=== PATIENT | female | born 1995 | race Caucasian/White ===

== ENCOUNTER → 2023-10-16 10:48 | Outpatient (CLI) | payer OTHER, SELFPAY ==
--- NOTE | ~2023-10-16 | US_ITS ---
EXAMINATION: US OB <=14 wk fetus w TV DATE: 10/16/2023 11:36 INDICATION: First term with inconclusive viability. TECHNIQUE: Real-time pelvic ultrasound utilizing both a transvaginal and transabdominal probe was pe rformed. The interpreting radiologist was not present for the study. COMPARISON: None. FINDINGS: The uterus measures 10.3 x 5.5 x 6.7 cm. There is an intrauterine gestational sac. A yolk sac and fe sonido pole are identified. The crown rump length measures 8 mm, which correlates with an estimated gest ational age of 6 weeks and 5 days. heart motion is identified measuring 126 beats per minute (b pm) by M-mode Doppler. The right ovary measures 2.2 x 2.0 x 1.5 cm. The left ovary measures 2.7 x 1.7 x 2.3 cm. 1.6 cm anech oic likely corpus luteum cyst in the left ovary. There is no free fluid in the pelvis. IMPRESSION: 1. Single living fetus with heart of 126 bpm. 2. Gestational age by ultrasound of 6 weeks 5 day(s) +/- 4 day(s) with ultrasound estimated date of delivery ([facility]) of 06/05/2024. Reviewed, dictated and finalized at location A. IN STATION OPERATOR IMPRESSION: 1. Single living fetus with heart of 126 bpm. 2. Gestational age by ultrasound of 6 weeks 5 day(s) +/- 4 day(s) with ultraso und estimated date of delivery ([facility]) of 06/05/2024.
== END ==
PROVIDERS: PCP Nurse Practitioner Family; Visit Provider Nurse Practitioner Family
DX: O36.80X0 Pregnancy with inconclusive fetal viability, not applicable or unspecified (principal); Z3A.01 Less than 8 weeks gestation of pregnancy
CPT/HCPCS: 76801; 76817

== ENCOUNTER → 2023-10-30 10:15 | Outpatient (CLI) | payer OTHER, SELFPAY ==
--- NOTE | ~2023-10-30 | US_ITS ---
EXAMINATION: US OB <=14 wk fetus w TV DATE: 10/30/2023 10:45 INDICATION: with inconclusive viability. TECHNIQUE: Real-time transabdominal and transvaginal pelvic ultrasound was performed. COMPARISON: Ultrasound 10/16/2023 FINDINGS: TRANSABDOMINAL ULTRASOUND: The uterus measures 10.7 x 4.4 x 7.6 cm. TRANSVAGINAL ULTRASOUND: There is an intrauterine gestational sac. A yolk sac is identified. The fet al crown rump length measures 1.6 cm, which correlates with an estimated gestational age of 8 weeks a nd 0 day(s) (+/-) 5 day(s). heart motion is not identified by M-mode Doppler. There is a small subchorionic hematoma. The right ovary measures 2.0 x 1.4 x 2.2 cm. The left ovary measures 2.6 x 2.7 x 2.4 cm. There is no free fluid in the pelvis. IMPRESSION: 1. demise. Reviewed, dictated and finalized at location A. SPECIALIST IMPRESSION: 1. demise.
== END ==
PROVIDERS: PCP Nurse Practitioner Family; Visit Provider Nurse Practitioner Family
DX: O36.80X0 Pregnancy with inconclusive fetal viability, not applicable or unspecified (principal); Z3A.00 Weeks of gestation of pregnancy not specified
CPT/HCPCS: 76801; 76817

== ENCOUNTER 2023-10-30 12:57 | Outpatient (CLI) | payer OTHER, SELFPAY | END 2023-10-30 12:58 | disposition home or self-care (01) | PROVIDERS: PCP Nurse Practitioner Family; Visit Provider Nurse Practitioner Family | DX: O02.1 Missed abortion (principal); Z3A.00 Weeks of gestation of pregnancy not specified | CPT/HCPCS: 36415; 86900; 86901 ==

== ENCOUNTER 2023-11-13 01:31 | Day surgery (SDC) | payer OTHER, SELFPAY ==
[2023-11-06 09:47] VITALS: BMI 31.3
--- NOTE | 2023-11-06 09:50 | PC.NURSE ---
Report to the Outpatient Waiting Room, entrance under the green pavilion located off [facility], at time 0630 on date 11/13/23. Planned Procedure Time: 0830. Time changes happen often and if your time is changed the preop area will call you the afternoon before. - You and your visitor will be asked to self-screen and do not enter if you have any COVID symptoms. - A mask is optional within the hospital at this time. Patients may have clear liquids (water, carbonated beverages, clear teas, apple juice) until 3 hours prior to surgery with a maximum of 20 ounces. - No food from midnight until time of surgery Take the following medications with a SIP of water the morning of surgery: BUPROPION, ESCITALOPRAM DO NOT STOP ANY OF YOUR OTHER PRESCRIPTION MEDICATIONS PRIOR TO SURGERY ?EXCEPT THE FOLLOWING Medications to discontinue per physician: VITAMINS Date to take last dose: 11/09/23 Please no make-up, nail guamanian, hairspray, perfume, deodorant, or body powder the day of surgery. No jewelry (including any body piercings) or valuables the day of surgery, leave them at home. Please take a shower or bath the night before, or the morning of, surgery with an antibacterial soap. Wear comfortable, loose fitting clothing. - Jewelry must be removed prior to entering the operating room. Rings and piercings that are not removed may be cut off. - The hospital will not accept responsibility for valuables. - Please leave all valuables, including medications, at home the day of surgery. If you are going home after surgery, a licensed warehouse delivery driver must drive you home. - NO public transportation without another adult if you receive anesthesia. - We recommend that an adult stay with you for 24 hours following discharge. - We also recommend that you do not drive, make important decision, drink alcoholic beverages, or take any drugs that were not prescribed by your health care provider for at least 24 hours after your discharge time. Follow any additional instructions given to you from your surgeon. If you or anyone in your household have experienced Covid symptoms in the past week, please notify your surgeon or the nurse liaison at the phone number below for possible testing. Telephone instructions given to PT - IVET LA and asked if any additional questions and then verbalized understanding. Patient advised to call surgeon office or pre surgery nurse liaison [phone] if any additional questions.
--- NOTE | 2023-11-13 06:14 | PM.IMHP ---
H&P: HPI History of Present Illness Date/Time: 11/13/23 06:14 Chief Complaint: Missed Narrative: Patient with recent history of missed . She attempted completion with several doses of misoprostol and she did not have any passage of tissue. She has opted for dilation and curettage. Review of Systems Review of Systems: All systems reviewed & are unremarkable except as noted in HPI and below Cardiovascular: Cardiovascular: Reports no additional cardiovascular complaints, Denies chest pain and Denies dyspnea Respiratory: Respiratory: Reports no additional respiratory complaints and Denies dyspnea Gastrointestinal: Gastrointestinal: Reports abdominal pain, Denies change in bowel habits, Denies diarrhea, Denies nausea and Denies vomiting Genitourinary: Genitourinary: Reports pelvic pain Musculoskeletal: Musculoskeletal: Reports back pain Integumentary/Breasts: Skin/Breast: Reports system reviewed and no additional complaints, except as docu Neurologic: Reports system reviewed and no additional complaints, except as documented PMFSH Past Medical History Medical History Anxiety Surgical History Surgical History History of tonsillectomy Family History Family History Other Alcoholism Diabetes mellitus Hypertension Social History Social History Smoking status: Never smoker Alcohol intake: never Substance use: current Substance use type: marijuana Do You Feel Safe in your Home?: Yes Lack of Transportation: No Lack of Food: Never True Current Housing: I Have Housing Concerned About Future Housing: No Difficulty Paying Gas/Electric Bills: No Difficulty Paying for Meds: No Currently Unemployed: No Education: Master's Degree or Higher Difficulty w/ Childcare or Family Care: No Living arrangements: with family Spiritual care concerns: No Meds Home Medications and Allergies Home Medications Medication Instructions Recorded Confirmed Type escitalopram oxalate 20 mg tablet 20 mg PO DAILY #90 tabs 10/14/23 11/13/23 Rx (Lexapro) bupropion HCl 100 mg tablet 100 mg PO DAILY #90 tabs 10/30/23 11/13/23 Rx Allergies Allergy/AdvReac Type Severity Reaction Status Date / Time No Known Allergies Allergy Verified 11/12/23 15:30 Exam Const: Orientation/consciousness: oriented to person and oriented to place HENMT: Head: normal to inspection Eyes: General: appearance normal, both eyes and all related structures Resp: Effort & Inspection: normal respiratory effort Auscultation: clear to auscultation bilaterally Cardio: Rate: regular rate Rhythm: regular rhythm GI: Inspection: normal to inspection GI Palp: No Rebound tenderness present Neuro: General: oriented to person and oriented to place Cognition (Neuro): normal cognition Extrem: General: normal to inspection Psych: Appearance: grossly normal and well kempt Assessment and Plan Assessment and plan (1) Missed ab: Code(s): O02.1 - Missed Status: Acute Assessment and Plan: Will proceed with suction dilation and curettage.
[2023-11-13 07:48] VITALS: BP 110/60; PULSE 84; RESP 18; TEMP 36.3; O2SAT 98
--- NOTE | 2023-11-13 08:02 | WPDANESEPPF ---
Anes - Initial Pre Proc Eval Procedure: Operation Date: 11/13/23 09:30 Proposed Procedures p Suction Dilatation and Curettage - Sebastian Chin MD Date/Time: 11/13/23 08:02 Surgeon: Sebastian Chin MD Pre Op Diagnosis: missed Ab Patient Data Age: 28 Gender: F Height: 1.7 m Weight: 94.5 kg Allergies Allergy/AdvReac Type Severity Reaction Status Date / Time No Known Allergies Allergy Verified 11/13/23 07:53 Home Medications Medication Instructions Recorded Confirmed Type escitalopram oxalate 20 mg tablet 20 mg PO DAILY #90 tabs 10/14/23 11/13/23 Rx (Lexapro) bupropion HCl 100 mg tablet 100 mg PO DAILY #90 tabs 10/30/23 11/13/23 Rx Patient hx anesthesia problems: none Family hx anesthesia problems: none Results Review: All pre-operative results and documents have been reviewed as part of the pre-operative evaluation. [facility] Past Medical History Medical History (Updated 11/13/23 @ 08:03 by Fuad Ruth MD) Anxiety Obesity Surgical History Surgical History History of tonsillectomy Family History Family History Other Alcoholism Diabetes mellitus Hypertension Social History Social History Smoking status: Never smoker Alcohol intake: never Substance use: current Substance use type: marijuana Do You Feel Safe in your Home?: Yes Lack of Transportation: No Lack of Food: Never True Current Housing: I Have Housing Concerned About Future Housing: No Difficulty Paying Gas/Electric Bills: No Difficulty Paying for Meds: No Currently Unemployed: No Education: Master's Degree or Higher Difficulty w/ Childcare or Family Care: No Living arrangements: with family Spiritual care concerns: No Anes - Eval Final PreProcedure Day of Procedure 11/13/23 08:02 Patient weight: obese Heart: regular rate and rhythm Lungs: clear to auscultation Airway: Mallampati scale class II Neurological: alert and oriented Last oral intake: >/= 8 hours ASA classification: II Emergent: no Anesthetic plan: proceed Anesthesia type and monitoring: general GIVS and standard monitoring Results Review: All pre-operative results and documents have been reviewed as part of the pre-operative evaluation. Informed Consent: The patient's anesthetic plan and its attendant risks and benefits were discussed with the patient/family/POA. Questions were solicited and answers provided to the satisfaction of the patient/family/POA.
[2023-11-13] MEDS: LACTATED RINGERS 1,000 ML 30 ML IV CONT (08:10)
[2023-11-13] MEDS: SCOPOLAMINE 1 MG PATCH 1 PATCH TRANSDERM (08:12)
[2023-11-13] MEDS: ACETAMINOPHEN 500 MG TABLET 1000 MG PO (08:12)
--- NOTE | 2023-11-13 08:38 | WPDHPUPDATE1 ---
History and Physical Update Update Date/Time: 11/13/23 08:38 History and Physical has been reviewed, including an updated exam of the patient. There are NO changes in the patient's condition. Risks, benefits, and alternatives have been discussed and questions answered. Patient agrees to proceed with procedure.
[2023-11-13] MEDS: ceFAZolin 2 GM/D5W 50 ML 2 GM/50 ML BAG IVPB (08:55)
[2023-11-13] MEDS: LIDOCAINE HCL 1% LOCAL INJ 20 ML VIAL 10 ML INFILTRATE (09:04)
[2023-11-13] MEDS: KETOROLAC 30 MG/ML VIAL (*BKC) IV PUSH (09:07)
[2023-11-13] MEDS: METHYLERGONOVINE MALEATE 0.2 MG/ML VIAL IV PUSH (09:14)
[2023-11-13 09:24] VITALS: BP 102/63; PULSE 76; RESP 17; O2SAT 100
--- NOTE | 2023-11-13 09:28 | W.PM.PROC2 ---
Procedure Note - Detailed Date of Procedure 11/13/23 Pre-op Diagnosis missed Ab Post-op Diagnosis Same Procedure Performed Suction dilation and curettage Surgeon Sebastian Chin MD Anesthesia MAC and Local Description of Procedure ?The patient was taken to the operating room where IV analgesia was administered. She was prepped and draped in usual sterile fashion in lithotomy position. A bivalve speculum was placed. The anterior lip of the cervix was grasped with a single tooth tenaculum. At this time, 10 cc of 1% plain lidocaine was injected at cervicovaginal interface at 2,5,8,10 position. Cervix dilated to 9 wang dilator. Uterus sound to 9cm. A size 8mm suction curettage was advanced into the uterine cavity without difficulty and was used to suction contents of the uterus until minimal tissue obtained. Once minimal tissue obtained a sharp curette was advanced into the uterine cavity and was used to scrape the four saldana of the uterus until a gritty texture was noted. There was some bleeding with this an additional tissue obtained. At this time, the suction curette was advanced several additional time to suction any remaining products. There was some tissue in the upper right cornual area. I instructed anesthesia to give her 0.2mg Methergine IM. The sharp curette passed on no tissue and good cry in all quadrants of cavity. Hemostasis noted. Minimal bleeding at os. All instruments were removed. Hemostasis was visualized. The patient was stable at the completion of the procedure. Sponge, lap, and instrument counts were correct. Estimated Blood Loss 75 Drains No Packing No Pathology Yes (Products of conception) Complications No immediate complications Condition Stable Disposition Same day [facility] Billing Surgery - Charge Forward: Surgery Billing
[2023-11-13 09:53] VITALS: BP 105/89; PULSE 70; RESP 16
[2023-11-13 10:15] VITALS: BP 115/64; PULSE 65; RESP 16
== END 2023-11-13 10:25 | disposition home or self-care (01) ==
PROVIDERS: Visit Provider Obstetrics & Gynecology
PROC: (CPT 59820; principal; 2023-11-13 09:30)
DX: O02.1 Missed abortion (principal); F41.9 Anxiety disorder, unspecified
CPT/HCPCS: 59820; 88305; A9270; J0690; J1100; J1885; J2210; J2250; J2405; J2704; J3010; J7120

== ENCOUNTER 2023-12-20 15:17 | Outpatient (CLI) | payer OTHER, SELFPAY ==
--- NOTE | ~2023-12-20 | US_ITS ---
Pelvic ultrasound. Clinical History: Pelvic pain Technique: Realtime transabdominal and transvaginal scanning of the pelvis was performed. Color flow Doppler and Doppler spectral analysis were performed. Findings: The uterus is anteverted. There is suggestion of an echogenic 2.6 x 2.2 x 2.6 cm masslike l esion at the endometrial stripe. No focal mass is identified. The right ovary measures 2.5 x 1.5 x 1.9 cm. No significant right ovarian or adnexal mass is seen. The left ovary measures 2.3 x 2.8 x 2.5 cm. No significant left ovarian or adnexal mass is seen. There is no evidence of free fluid in the cul de sac. Impression: Suggestion of 2.6 cm echogenic masslike lesion with vascular flow within the endometrial stripe. This could reflect large endometrial polyp or possibly submucosal fibroid. Consider hysteroscopy or MR fo r further evaluation. Reviewed, dictated and finalized at location . Impression: Suggestion of 2.6 cm echogenic masslike lesion with vascular flow within the en dometrial stripe. This could reflect large endometrial polyp or possibly submuc osal fibroid. Consider hysteroscopy or MR for further evaluation.
== END 2023-12-20 15:18 ==
LOC: MICIMG 15:17
PROVIDERS: PCP Obstetrics & Gynecology; Visit Provider Obstetrics & Gynecology
DX: R10.2 Pelvic and perineal pain (principal)
CPT/HCPCS: 76830; 76856

== ENCOUNTER 2024-01-01 14:18 | Outpatient (CLI) | payer OTHER, SELFPAY ==
--- NOTE | ~2024-01-01 | US_ITS ---
EXAMINATION: US pelvic complete w TV DATE: 01/01/2024 14:50 INDICATION: Follow-up abnormal findings prior ultrasound Comparison:Ultrasound dated 12/20/2023 TECHNIQUE: Multiple transabdominal and endovaginal sonographic images of the pelvis performed. FINDINGS: The uterus measures 8.4 x 3.6 x 4.8 cm. The endometrial complex measures 6 mm. The right ovary measures 3.1 x 2.1 x 2.4 cm and the left ovary measures 2.8 x 2.4 x 1.6 cm. There ar e small follicles in each ovary. Normal doppler signal in both ovaries. There is no free fluid in the pelvis. There are no abnormal masses seen on either side. IMPRESSION: 1. Unremarkable pelvic ultrasound. Reviewed, dictated and finalized at location B.
== END 2024-01-01 14:19 ==
LOC: MICIMG 14:19
PROVIDERS: PCP Obstetrics & Gynecology; Visit Provider Obstetrics & Gynecology
DX: R93.89 Abnormal findings on diagnostic imaging of other specified body structures (principal)
CPT/HCPCS: 76830; 76856